=== PATIENT | female | born 1980 | race Two or more races ===

== ENCOUNTER 2023-11-30 12:40 | Outpatient (CLI) | payer OTHER | END 2023-11-30 12:50 | disposition home or self-care (01) | LOC: RAD 12:40 | PROVIDERS: ATTEND Surgery | DX: I10 Essential (primary) hypertension (principal) ==

== ENCOUNTER 2023-12-11 06:20 | Day surgery (SDC) | payer OTHER ==
[2023-12-11] MEDS ORDERED: CLINDAMYCIN PHOSPHATE 150 MG/ML (900mg) ONE (08:39)
[2023-12-11] MEDS ORDERED: GENTAMICIN SULFATE 40 MG/ML VIAL ONE (13:58)
[2023-12-11] MEDS ORDERED: CEFAZOLIN SODIUM 1,000 MG VIAL ONE (13:59)
[2023-12-11] MEDS ORDERED: DIPHENHYDRAMINE HCL 50 MG/ML VIAL 1ML ONE (14:26)
[2023-12-11] MEDS ORDERED: CEFAZOLIN SODIUM 1,000 MG VIAL IV ONE (15:30)
[2023-12-11] MEDS ORDERED: CHLORHEXIDINE GLUCONATE 120 ML BOTTLE TOP ONE (15:30)
[2023-12-11] MEDS ORDERED: GENTAMICIN SULFATE 40 MG/ML VIAL IR ONE (15:30)
[2023-12-11] MEDS ORDERED: DIPHENHYDRAMINE HCL 50 MG/ML VIAL 1ML IV ONE (15:30)
[2023-12-11] MEDS ORDERED: CLINDAMYCIN PHOSPHATE 150 MG/ML (900mg) IV ONE (15:30)
== END 2023-12-11 20:00 | disposition home or self-care (01) ==
LOC: CIR.AMB 06:20
PROVIDERS: ATTEND Surgery
DX: C50.812 Malignant neoplasm of overlapping sites of left female breast (principal); R59.0 Localized enlarged lymph nodes; Z90.12 Acquired absence of left breast and nipple; Z91.041 Radiographic dye allergy status; Z88.0 Allergy status to penicillin

== ENCOUNTER → 2024-08-01 12:48 | Outpatient (CLI) | payer OTHER ==
[2024-08-01 13:26] LABS: URINE APPEARANCE Clear; URINE BILIRRUBIN Negative (NEGATIVE); URINE BLOOD Large; URINE COLOR Yellow; URINE GLUCOSE Negative (NEGATIVE); URINE KETONE Negative (NEGATIVE); URINE LEUKOCYTE Negative; URINE NITRATE Negative; URINE PROTEIN Negative (NEGATIVE); URINE UROBILINOGEN 0.2 E.U./dl
[2024-08-01 13:30] LABS: URINE BACTERIA 84.3 uL (0.0-1933); URINE EPITHELIAL CELLS 8.6 uL (0.0-38.8); URINE RBC 15.5 uL (0.0-20.8)
[2024-08-01 13:35] LABS: HEMATOCRIT 42.9 % (36.0-45.00); HEMOGLOBIN 14.3 g/dL (12.0-15.00); MEAN CELL VOLUME 90.9 fL (80.00-100.00); MEAN CORPUSCULAR HEMOGLOBIN 30.2 pg (27.00-32.0); MEAN CORPUSCULAR HGB CONC 33.2 g/dl (32.0-36.0); PLATELET COUNT 218 K/uL (150-450); RED BLOOD COUNT 4.72 M/uL (4.00-6.00); RED CELL DISTRIBUTION WIDTH 14.1 % (11.5-14.5)
== END | disposition home or self-care (01) ==
LOC: LAB 12:48
PROVIDERS: ATTEND Internal Medicine Cardiovascular Disease
DX: N39.0 Urinary tract infection, site not specified (principal); R19.7 Diarrhea, unspecified

== ENCOUNTER 2024-08-01 13:43 | Outpatient (CLI) | payer OTHER | END 2024-08-01 13:48 | disposition home or self-care (01) | LOC: RAD 13:43 | PROVIDERS: ATTEND Internal Medicine Cardiovascular Disease | DX: Z13.9 Encounter for screening, unspecified (principal); Z01.811 Encounter for preprocedural respiratory examination ==

== ENCOUNTER 2024-08-02 10:36 | Outpatient (CLI) | payer OTHER | END 2024-08-02 11:27 | disposition home or self-care (01) | LOC: LAB 10:36 | PROVIDERS: ATTEND Internal Medicine Cardiovascular Disease | DX: R19.7 Diarrhea, unspecified (principal); N39.0 Urinary tract infection, site not specified ==

== ENCOUNTER 2024-08-12 06:21 | Day surgery (SDC) | payer OTHER ==
[2024-08-12] MEDS ORDERED: CEFAZOLIN SODIUM 1,000 MG VIAL IV SCH (11:00)
[2024-08-12] MEDS ORDERED: CHLORHEXIDINE GLUCONATE 120 ML BOTTLE TOP SCH (11:00)
[2024-08-12] MEDS ORDERED: VANCOMYCIN HCL 1,000 MG VIAL IR SCH (11:00)
[2024-08-12] MEDS ORDERED: EPINEPHRINE HCL/PF 1 MG/ML AMPUL IR SCH (11:00)
[2024-08-12] MEDS ORDERED: CLINDAMYCIN PHOSPHATE 150 MG/ML (900mg) IV SCH (11:00)
[2024-08-12] MEDS ORDERED: BUPIVACAINE HCL/PF 0.25% 30ML VIAL InF SCH (11:00)
[2024-08-12] MEDS ORDERED: POVIDONE-IODINE 118 ML BOTT TOP SCH (11:00)
[2024-08-12] MEDS ORDERED: MORPHINE SULFATE 4 MG/ML VIAL IV ONE ×2 (12:35→13:05)
[2024-08-12] MEDS ORDERED: ONDANSETRON HCL 2 MG/ML VIAL IV PRN (13:15)
[2024-08-12] MEDS ORDERED: MORPHINE SULFATE 4 MG/ML VIAL IV PRN (13:15)
== END 2024-08-12 14:40 | disposition home or self-care (01) ==
LOC: CIR.AMB 06:21
PROVIDERS: ATTEND Plastic Surgery
DX: N65.1 Disproportion of reconstructed breast (principal); Z90.12 Acquired absence of left breast and nipple; N64.89 Other specified disorders of breast; N64.81 Ptosis of breast; C50.912 Malignant neoplasm of unspecified site of left female breast